=== PATIENT | male | born 1970 | race Two or more races ===

== ENCOUNTER 2016-10-24 08:07 | Outpatient (CLI) | payer MEDICARE, MEDICAID | END 2016-10-24 08:08 | disposition home or self-care (01) | DX: K22.8 Other specified diseases of esophagus (principal) ==

== ENCOUNTER 2016-12-14 11:16 | Emergency (ER) | payer MEDICARE, MEDICAID ==
[2016-12-14] MEDS ORDERED: LIDOCAINE 1%-EPI 1:100000 20 ML MDV SUBQ STA (12:32)
[2016-12-14] MEDS ORDERED: LIDOCAINE MPF 1%-EPI 1:200000 30 ML VIAL ONE (12:32)
== END 2016-12-14 13:18 | disposition home or self-care (01) ==
DX: L02.11 Cutaneous abscess of neck (principal); I10 Essential (primary) hypertension; E78.00 Pure hypercholesterolemia, unspecified; E11.9 Type 2 diabetes mellitus without complications; Z79.4 Long term (current) use of insulin; F17.200 Nicotine dependence, unspecified, uncomplicated

== ENCOUNTER 2017-12-15 17:19 | Emergency (ER) | payer MEDICARE, MEDICAID ==
--- NOTE | 2017-12-15 17:40 | ED Physician Documentation ---
PD HPI UPPER EXT INJURY - Stated complaint Stated Complaint: ARM LAC - Chief complaint Chief Complaint: Laceration - History obtained from History obtained from: Patient - History of Present Illness Location: Other (47-year-old gentleman who is up-to-date on tetanus cut his own right arm today because of anger at himself. There is no suicidal intent.) Review of Systems Constitutional: reports: Reviewed and negative Throat: reports: Reviewed and negative Cardiac: reports: Reviewed and negative Respiratory: reports: Reviewed and negative PD PAST MEDICAL HISTORY - Past Medical History Cardiovascular: Hypertension, High cholesterol Respiratory: None, Other Endocrine/Autoimmune: Type 2 diabetes Psych: Anxiety, Bipolar disorder, Other Musculoskeletal: None - Past Surgical History Past Surgical History: Yes - Present Medications Home Medications: Ambulatory Orders Medication Instructions Recorded Confirmed Fenofibrate [Tricor] 100 mg PO QD 03/19/13 06/24/16 Lisinopril [Zestril] 10 mg PO DAILY 03/19/13 06/24/16 Insulin Glargine,Hum.rec.anlog 60 units SUBQ QPM 02/27/14 06/24/16 [Lantus] Insulin Aspart (Vial) [NovoLOG] 7 - 17 unit SQ TIDWM 03/19/14 06/24/16 Atorvastatin [Lipitor] 1 tab PO DAILY 07/27/15 06/24/16 OLANZapine [Zyprexa] 10 mg PO DAILY 06/24/16 06/24/16 Sertraline HCl [Zoloft] 20 mg PO DAILY 06/24/16 06/24/16 Trazodone HCl 2 tab PO QPM #20 tablet 12/15/17 - Allergies Allergies/Adverse Reactions: Allergies Allergy/AdvReac Type Severity Reaction Status Date / Time Cephalosporins Allergy Severe Hives Verified 12/15/17 17:39 Penicillins Allergy Intermediate Rash Verified 12/15/17 17:39 eggplant Allergy Severe Edema Uncoded 12/15/17 17:39 - Social History Does the pt smoke?: Yes Smoking Status: Current every day smoker Does the pt drink ETOH?: Yes Does the pt have substance abuse?: No - Immunizations Immunizations are current?: Yes - POLST Patient has POLST: No PD ED PE NORMAL - Vitals Vital signs reviewed: Yes - General General: Alert and oriented X 3, Other (Loud and intoxicated) - HEENT HEENT: PERRL, EOMI - Abdomen Abdomen: Soft, Non tender - Back Back: No CVA TTP, No spinal TTP - Derm Derm: Other (There is a long but very shallow laceration over the dorsal part of the right forearm, it is only very mildly deep at the top and bottom portions of it, the portions needing suturing measure 5 cm.) - Extremities Extremities: No edema, No calf tenderness / cord - Neuro Neuro: Alert and oriented X 3, Normal speech Results - Vitals Vitals: Vital Signs - 24 hr 12/15/17 17:31 Temperature 37.2 C Heart Rate 110 H Respiratory 18 Rate Blood Pressure 142/108 H O2 Saturation 96 Oxygen O2 Source Room air Procedures - Laceration (location) R arm Length in cm: 5 Wound type: Linear Neurovascular status: Sensory intact, Motor intact, Vascular intact Anesthesia: Lidocaine 1% with epi Wound Preparation: Irrigated copiously NS Skin layer closure: Nylon, Running, Size #-0 - enter number (3-0) Other: Tetanus UTD Complexity: Simple PD MEDICAL DECISION MAKING - ED course ED course: Seen by social professionals and confirmed no suicidal or homicidal intent. Departure - Departure Disposition: 01 Home, Self Care Clinical Impression: Laceration Condition: Good Record reviewed to determine appropriate education?: Yes Instructions: ED Laceration All Prescriptions: Trazodone HCl 2 tab PO QPM #20 tablet Comments: Do not drink alcohol. Return if worse. Call your doctor to arrange a follow-up appointment, make the next available appointment. In the interim, return anytime if worse or if new symptoms develop. Your blood pressure was elevated today on check into the emergency department. This does not mean that you have hypertension, it is a common phenomenon to come to the emergency department and have elevated blood pressure. I recommend that you see your primary care physician within the week to have it rechecked when you are feeling better.
[2017-12-15] MEDS ORDERED: BACITRACIN OINT TOP ONE (18:01)
[2017-12-15 18:45] VITALS: BP 120/98
== END 2017-12-15 18:45 | disposition home or self-care (01) ==
LOC: ED 17:19
DX: S51.811A Laceration without foreign body of right forearm, initial encounter (principal); X78.9XXA Intentional self-harm by unspecified sharp object, initial encounter; I10 Essential (primary) hypertension; E78.00 Pure hypercholesterolemia, unspecified; E11.9 Type 2 diabetes mellitus without complications; F17.200 Nicotine dependence, unspecified, uncomplicated; Z79.4 Long term (current) use of insulin
CPT/HCPCS: 12002; 99283; A9270; 80053; 80307; 80320; 80329; 83690; 85025

== ENCOUNTER 2017-12-25 09:21 | Emergency (ER) | payer MEDICARE, MEDICAID ==
[2017-12-25] MEDS ORDERED: MULTIVITAMIN 10 ML in SODIUM CHLORIDE 0.9% 1,000 ML IV STA (09:44)
[2017-12-25] MEDS ORDERED: THIAMINE INJ 100 MG, FOLIC ACID INJ 1 MG in SODIUM CHLORIDE 0.9% 100ML 100 ML IV STA (09:44)
[2017-12-25] MEDS ORDERED: MAGNESIUM SULFATE 2 GRAM 2 GM/50 ML BAG IV STA (09:44)
[2017-12-25] MEDS ORDERED: LORazepam 2 MG/ML VIAL IVP STA ×2 (09:45→11:00)
[2017-12-25 10:25] LABS: BASOPHILS # (AUTO) 0.1 10^3/uL (0.0-0.1); BASOPHILS % (AUTO) 0.7 %; EOSINOPHILS % (AUTO) 0.4 %; HGB - HEMOGLOBIN 14.6 g/dL (14.0-18.0); LYMPHOCYTES # (AUTO) 1.7 10^3/uL (1.5-3.5); LYMPHOCYTES % (AUTO) 21.7 %; MEAN CORPUSCULAR HEMOGLOBIN 31.5 pg (27.0-31.0); MEAN CORPUSCULAR HGB CONC 34.2 g/dL (32.0-36.0); MEAN CORPUSCULAR VOLUME 92.2 fL (80.0-94.0); MEAN PLATELET VOLUME 7.9 fL (7.4-11.4); MONOCYTES # (AUTO) 0.3 10^3/uL (0.0-1.0); MONOCYTES % (AUTO) 4.1 %; NEUTROPHILS # (AUTO) 5.6 10^3/uL (1.5-6.6); NEUTROPHILS % (AUTO) 73.1 %; PLT - PLATELET COUNT 102 10^3/uL (130-450); RED BLOOD COUNT 4.63 10^6/uL (4.70-6.10); RED CELL DISTRIBUTION WIDTH 13.4 % (12.0-15.0); WHITE BLOOD COUNT 7.7 x10^3/uL (4.8-10.8)
[2017-12-25 10:29] LABS: ALBUMIN 4.6 g/dL (3.2-5.5); ALBUMIN/GLOBULIN RATIO 1.4 (1.0-2.2); ALKALINE PHOSPHATASE 73 IU/L (42-121); ALT ALANINE AMINOTRANSFERASE 51 IU/L (10-60); AST ASPARTATE AMINOTRANSFERASE 54 IU/L (10-42); BILIRUBIN,TOTAL 1.3 mg/dL (0.2-1.0); BUN - BLOOD UREA NITROGEN 17 mg/dL (6-20); CARBON DIOXIDE - CO2 21 mmol/L (21-32); CHLORIDE 91 mmol/L (101-111); CREATININE 0.7 mg/dL (0.6-1.2); GFR - MDRD 122 (>89); GLUCOSE 115 mg/dL (70-100); LIPASE 23 U/L (22-51); SODIUM 131 mmol/L (135-145)
[2017-12-25 10:42] LABS: MUDS CUTOFF CONCENTRATIONS CUTOFF CONC BELOW:
[2017-12-25 10:53] LABS: GLUCOSE, URINE (UA) 500 mg/dL (NEGATIVE); KETONES,URINE (UA) >=80 mg/dL (NEGATIVE); LEUKOCYTE ESTERASE, URINE NEGATIVE (NEGATIVE); NITRITE,URINE NEGATIVE (NEGATIVE); OCCULT BLOOD,URINE TRACE-INTA (NEGATIVE); PROTEIN,URINE TRACE mg/dL (NEGATIVE); UROBILINOGEN,URINE 0.2 (NORMAL) E.U./dL (NORMAL)
[2017-12-25] MEDS ORDERED: ONDANSETRON 4 MG/2 ML VIAL IVP STA (11:00)
--- NOTE | 2017-12-25 11:00 | ED Physician Documentation ---
History of Present Illness - Stated complaint Stated Complaint: WITHDRAWLS - Chief complaint Chief Complaint: General - Additonal information Additional information: hx from pt 47 male drinks 4 tall beers daily drank his usual amt yesterday today NVD and can't tolerate PO and has developed the shakes no hallucinations or seizures no bad food travel sick contacts wants detox no falls or injury Review of Systems Constitutional: denies: Fever, Chills Cardiac: denies: Chest pain / pressure, Palpitations Respiratory: denies: Dyspnea, Cough GI: reports: Nausea, Vomiting, Diarrhea. denies: Abdominal Pain Endocrine: denies: Easy bruising / bleeding Immunocompromised: denies: Immunocompromised PD PAST MEDICAL HISTORY - Past Medical History Cardiovascular: Hypertension, High cholesterol Respiratory: None, Other Neuro: Headache/migraine, Head injury, Peripheral neuropathy Endocrine/Autoimmune: Type 2 diabetes GI: Hemorrhoids : None HEENT: Chronic hearing loss Psych: Anxiety, Bipolar disorder, Other Musculoskeletal: None Derm: None - Past Surgical History Past Surgical History: Yes - Present Medications Home Medications: Ambulatory Orders Medication Instructions Recorded Confirmed Fenofibrate [Tricor] 100 mg PO QD 03/19/13 06/24/16 Lisinopril [Zestril] 10 mg PO DAILY 03/19/13 06/24/16 Insulin Glargine,Hum.rec.anlog 60 units SUBQ QPM 02/27/14 06/24/16 [Lantus] Insulin Aspart (Vial) [NovoLOG] 7 - 17 unit SQ TIDWM 03/19/14 06/24/16 Atorvastatin [Lipitor] 1 tab PO DAILY 07/27/15 06/24/16 OLANZapine [Zyprexa] 10 mg PO DAILY 06/24/16 06/24/16 Sertraline HCl [Zoloft] 20 mg PO DAILY 06/24/16 06/24/16 Trazodone HCl 2 tab PO QPM #20 tablet 12/15/17 chlordiazePOXIDE [Librium] 25 mg PO DAILY PRN #7 capsule 12/25/17 - Allergies Allergies/Adverse Reactions: Allergies Allergy/AdvReac Type Severity Reaction Status Date / Time Cephalosporins Allergy Severe Hives Verified 12/25/17 09:36 Penicillins Allergy Intermediate Rash Verified 12/25/17 09:36 eggplant Allergy Severe Edema Uncoded 12/25/17 09:36 - Social History Does the pt smoke?: Yes Smoking Status: Current every day smoker Does the pt drink ETOH?: Yes Does the pt have substance abuse?: No - Immunizations Immunizations are current?: Yes - POLST Patient has POLST: No PD ED PE NORMAL - Vitals Vital signs reviewed: Yes - General General: Alert and oriented X 3 - HEENT HEENT: Atraumatic - Neck Neck: Supple, no meningeal sign - Cardiac Cardiac: RRR - Respiratory Respiratory: No respiratory distress, Clear bilaterally - Abdomen Abdomen: Non tender - Derm Derm: Normal color - Neuro Neuro: Other (tremulous) Results - Vitals Vitals: Vital Signs - 24 hr 12/25/17 12/25/17 09:33 11:36 Temperature 36.2 C L Heart Rate 100 109 H Respiratory 20 18 Rate Blood Pressure 150/99 H 130/91 H O2 Saturation 100 99 Oxygen O2 Source Room air - EKG (time done) 0942 Rate: Rate (enter#) (94) Rhythm: NSR Ischemia: ST elevation c/w repol - Labs Labs: Laboratory Tests 12/25/17 12/25/17 12/25/17 10:12 10:12 10:15 WBC 7.7 RBC 4.63 L Hgb 14.6 Hct 42.7 MCV 92.2 MCH 31.5 H MCHC 34.2 RDW 13.4 Plt Count 102 L MPV 7.9 Neut # 5.6 Lymph # 1.7 [place] # 0.3 Eos # 0.0 Baso # 0.1 Absolute Nucleated RBC 0.00 Nucleated RBC % 0.0 Sodium 131 L Potassium 4.3 Chloride 91 L Carbon Dioxide 21 Anion Gap 19.0 H BUN 17 Creatinine 0.7 Estimated GFR (MDRD) 122 Glucose 115 H Calcium 9.0 Total Bilirubin 1.3 H AST 54 H ALT 51 Alkaline Phosphatase 73 Total Protein 8.0 Albumin 4.6 Globulin 3.4 Albumin/Globulin Ratio 1.4 Lipase 23 Urine Color YELLOW Urine Clarity CLEAR Urine pH 5.0 Ur Specific [place] >=1.030 H Urine Protein TRACE Urine Glucose (UA) 500 H Urine Ketones >=80 H Urine Occult Blood TRACE-INTA Urine Nitrite NEGATIVE Urine Bilirubin NEGATIVE Urine Urobilinogen 0.2 (NORMAL) Ur Leukocyte Esterase NEGATIVE Ur Microscopic Review NOT INDICATED Urine Culture Comments NOT INDICATED Urine Opiates Screen NEGATIVE Ur Oxycodone Screen NEGATIVE Urine Methadone Screen NEGATIVE Ur Propoxyphene Screen NEGATIVE Ur Barbiturates Screen NEGATIVE Ur Tricyclics Screen NEGATIVE Ur Phencyclidine Scrn NEGATIVE Ur Amphetamine Screen NEGATIVE U Methamphetamines Scrn NEGATIVE U Benzodiazepines Scrn POSITIVE H Urine Cocaine Screen NEGATIVE U Cannabinoids Screen NEGATIVE Ethyl Alcohol < 5.0 PD MEDICAL DECISION MAKING - ED course ED course: pt given ativan and a bananna bag and felt better declines inpt detox now has resources AA etc going home with family who can support him will dc he states he wants to sty sober so will rx librium very clearly explained not to drink while taking librium seen by SW and resources offered Departure - Departure Disposition: Home, Self Care Clinical Impression: Alcohol withdrawal Qualifiers: Complication of substance-induced condition: uncomplicated Qualified Code(s): F10.230 - Alcohol dependence with withdrawal, uncomplicated Condition: Good Instructions: ED Withdrawal Alcohol Follow-Up: Amanda Bergeron DO [Primary Care Provider] - (this week for a recheck ) Prescriptions: chlordiazePOXIDE [Librium] 25 mg PO DAILY PRN #7 capsule PRN Reason: withdrawal symptoms Comments: Please follow up with the outpatient resources social work provided you with
[2017-12-25 11:19] LABS: BILIRUBIN,URINE NEGATIVE (NEGATIVE); CLARITY,URINE CLEAR (CLEAR); ICTOTEST,URINE NEGATIVE
[2017-12-25 11:22] LABS: AMPHETAMINE SCREEN,URINE NEGATIVE (NEGATIVE); BENZODIAZEPINES SCREEN, URINE POSITIVE (NEGATIVE); COCAINE SCREEN URINE NEGATIVE (NEGATIVE); METHADONE SCREEN, URINE NEGATIVE (NEGATIVE); METHAMPHETAMINES SCREEN, URINE NEGATIVE (NEGATIVE); OPIATE SCREEN, URINE NEGATIVE (NEGATIVE); OXYCODONE SCREEN, URINE NEGATIVE (NEGATIVE); PROPOXYPHENE SCREEN, URINE NEGATIVE (NEGATIVE); TRICYCLIC ANTIDEPRESSANT,URINE NEGATIVE (NEGATIVE)
[2017-12-25 13:45] VITALS: BP 128/91
== END 2017-12-25 14:10 | disposition home or self-care (01) ==
LOC: ED 09:21
DX: F10.239 Alcohol dependence with withdrawal, unspecified (principal); I10 Essential (primary) hypertension; E78.00 Pure hypercholesterolemia, unspecified; E10.9 Type 1 diabetes mellitus without complications; F17.200 Nicotine dependence, unspecified, uncomplicated; Z79.4 Long term (current) use of insulin
CPT/HCPCS: 36415; 80053; 80306; 81003; 83690; 85025; 93005; 96365; 96366; 96368; 96375; 96376; 99283; 99284; G0480; J2060; J3411; 80320; 81001; 87086

== ENCOUNTER 2018-01-24 13:56 | Emergency (ER) | payer MEDICARE, MEDICAID ==
[2018-01-24] MEDS ORDERED: SODIUM CHLORIDE 0.9% 1,000 ML IV ONE (14:27)
--- NOTE | 2018-01-24 14:32 | ED Physician Documentation ---
PD HPI URI - Stated complaint Stated Complaint: Cough, sore though - Chief complaint Chief Complaint: Resp - History obtained from History obtained from: Patient, Friend (his neighbor) - History of Present Illness Timing - onset: Other (47-year-old gentleman with diabetes on insulin and alcoholism, smokes tobacco and also has bipolar disorder. He has been sick for about a week and a half with reductive cough with yellow sputum, body aches, severe fatigue and weight loss. He also has a sore throat. He denies abdominal pain or nausea. No sick contacts or recent travel. He says he has not drank today.) Review of Systems Constitutional: reports: Fever, Chills, Myalgias, Fatigue Ears: denies: Ear pain Nose: denies: Rhinorrhea / runny nose Throat: reports: Sore throat Respiratory: reports: Dyspnea, Cough GI: denies: Abdominal Pain, Nausea, Diarrhea PD PAST MEDICAL HISTORY - Past Medical History Past Medical History: Yes Cardiovascular: Hypertension, High cholesterol Respiratory: None, Other Endocrine/Autoimmune: Type 2 diabetes GI: Hemorrhoids : None HEENT: Chronic hearing loss Psych: Anxiety, Bipolar disorder, Other Musculoskeletal: None Derm: None - Past Surgical History Past Surgical History: Yes - Present Medications Home Medications: Ambulatory Orders Medication Instructions Recorded Confirmed Fenofibrate [Tricor] 100 mg PO QD 03/19/13 06/24/16 Lisinopril [Zestril] 10 mg PO DAILY 03/19/13 06/24/16 Insulin Glargine,Hum.rec.anlog 60 units SUBQ QPM 02/27/14 06/24/16 [Lantus] Insulin Aspart (Vial) [NovoLOG] 7 - 17 unit SQ TIDWM 03/19/14 06/24/16 Atorvastatin [Lipitor] 1 tab PO DAILY 07/27/15 06/24/16 OLANZapine [Zyprexa] 10 mg PO DAILY 06/24/16 06/24/16 Sertraline HCl [Zoloft] 20 mg PO DAILY 06/24/16 06/24/16 Trazodone HCl 2 tab PO QPM #20 tablet 12/15/17 chlordiazePOXIDE [Librium] 25 mg PO DAILY PRN #7 capsule 12/25/17 Clotrimazole Ben 10 mg MM 5XD #60 lozenge 01/24/18 Levofloxacin [Levaquin] 750 mg PO DAILY #9 tablet 01/24/18 - Allergies Allergies/Adverse Reactions: Allergies Allergy/AdvReac Type Severity Reaction Status Date / Time Cephalosporins Allergy Severe Hives Verified 01/24/18 14:05 Penicillins Allergy Intermediate Rash Verified 01/24/18 14:05 eggplant Allergy Severe Edema Uncoded 01/24/18 14:05 - Social History Does the pt smoke?: Yes Smoking Status: Current every day smoker Does the pt drink ETOH?: Yes Does the pt have substance abuse?: No - Family History Family history: reports: Non contributory - Immunizations Immunizations are current?: Yes - POLST Patient has POLST: No PD ED PE NORMAL - Vitals Vital signs reviewed: Yes - General General: Alert and oriented X 3, No acute distress - HEENT HEENT: Other (Dysmorphic facial features, hearing aids in place, he has a severe case of oropharyngeal thrush.) - Neck Neck: Supple, no meningeal sign, No bony TTP - Cardiac Cardiac: RRR, No murmur - Respiratory Respiratory: No respiratory distress, Clear bilaterally - Abdomen Abdomen: Normal bowel sounds, Soft, Non tender - Derm Derm: No rash - Neuro Neuro: Alert and oriented X 3, Normal speech Results - Vitals Vitals: Vital Signs - 24 hr 01/24/18 14:02 Temperature 36.3 C L Heart Rate 126 H Respiratory 18 Rate Blood Pressure 132/90 H O2 Saturation 98 Oxygen O2 Source Room air - Labs Labs: Laboratory Tests 01/24/18 01/24/18 01/24/18 15:00 15:00 15:00 WBC 13.0 H RBC 5.11 Hgb 15.9 Hct 46.5 MCV 91.0 MCH 31.1 H MCHC 34.1 RDW 13.1 Plt Count 254 MPV 7.7 Neut # 7.9 H Lymph # 3.4 Love # 1.6 H Eos # 0.0 Baso # 0.1 Absolute Nucleated RBC 0.01 Nucleated RBC % 0.1 Sodium 131 L Potassium 3.2 L Chloride 86 L Carbon Dioxide 27 Anion Gap 18.0 H BUN 8 Creatinine 0.6 Estimated GFR (MDRD) 146 Glucose 198 H Lactic Acid 1.5 Calcium 8.4 L Magnesium 2.4 Total Bilirubin 1.2 H AST 34 ALT 36 Alkaline Phosphatase 90 Total Protein 8.2 Albumin 3.5 Globulin 4.7 H Albumin/Globulin Ratio 0.7 L Lipase 26 Ethyl Alcohol 293.5 - Rads (name of study) 2v chest Radiology: EMP read contemporaneously (Mild but developing multifocal pneumonia) PD MEDICAL DECISION MAKING - ED course ED course: 47-year-old gentleman with history of alcoholism presents with cough and sputum production. He has oral thrush but he has no historical risk factors for HIV, he has never used IV drugs or been sexually promiscuous. He does have pneumonia on x-ray, his tachycardia resolved with IV fluids. He said he felt well enough to go home in fact was basically on his way out the door to go smoke and really wanted to get out of here so he was given oral antibiotics. Note made that he says he has not drank today, so he must of been really drunk last night. With his permission I called his friend to come pick him up. Departure - Departure Disposition: 01 Home, Self Care Clinical Impression: Alcoholism, Oral thrush Pneumonia Qualifiers: Pneumonia type: due to unspecified organism Laterality: bilateral Lung location : unspecified part of lung Qualified Code(s): J18.9 - Pneumonia, unspecified organism Condition: Good Record reviewed to determine appropriate education?: Yes Instructions: Pneumonia Dc, ED Alcohol Intoxication Prescriptions: Clotrimazole Ben 10 mg MM 5XD #60 lozenge Levofloxacin [Levaquin] 750 mg PO DAILY #9 tablet Comments: Call your doctor to arrange a follow-up appointment, make the next available appointment. In the interim, return anytime if worse or if new symptoms develop. Your blood pressure was elevated today on check into the emergency department. This does not mean that you have hypertension, it is a common phenomenon to come to the emergency department and have elevated blood pressure. I recommend that you see your primary care physician within the week to have it rechecked when you are feeling better.
--- NOTE | 2018-01-24 14:43 | XRAY Preliminary Report ---
Exam: XR CHEST 2 VIEW X-RAY IMPRESSION: Findings suggestive of infectious/inflammatory bronchiolitis and/or developing multifocal pneumonia. [facility] SITE ID: [id number]
--- NOTE | 2018-01-24 14:56 | XRAY Report ---
EXAM: CHEST RADIOGRAPHY EXAM DATE: 01/24/2018 02:25 PM. CLINICAL HISTORY: Productive cough, fever, and weight loss. COMPARISON: 10/18/2013. TECHNIQUE: 2 views. FINDINGS: Lungs/Pleura: Lungs are mildly hyperinflated as before which may be physiologic or due to airways dis ease. There are bilateral patchy reticular nodular opacities, predominating the right lung with relat mihir sparing of the left upper lung. No pleural effusion. No pneumothorax. Mediastinum: Heart and mediastinal contours are unremarkable. Other: None. IMPRESSION: Findings suggestive of infectious/inflammatory bronchiolitis and/or developing multifocal pneumonia. [facility] Referring Provider Line: [phone] SITE ID: [id number]
[2018-01-24 15:07] LABS: BASOPHILS # (AUTO) 0.1 10^3/uL (0.0-0.1); BASOPHILS % (AUTO) 0.6 %; EOSINOPHILS % (AUTO) 0.3 %; HGB - HEMOGLOBIN 15.9 g/dL (14.0-18.0); LYMPHOCYTES # (AUTO) 3.4 10^3/uL (1.5-3.5); LYMPHOCYTES % (AUTO) 25.9 %; MEAN CORPUSCULAR HEMOGLOBIN 31.1 pg (27.0-31.0); MEAN CORPUSCULAR HGB CONC 34.1 g/dL (32.0-36.0); MEAN PLATELET VOLUME 7.7 fL (7.4-11.4); MONOCYTES # (AUTO) 1.6 10^3/uL (0.0-1.0); MONOCYTES % (AUTO) 12.5 %; NEUTROPHILS # (AUTO) 7.9 10^3/uL (1.5-6.6); NEUTROPHILS % (AUTO) 60.7 %; PLT - PLATELET COUNT 254 10^3/uL (130-450); RED BLOOD COUNT 5.11 10^6/uL (4.70-6.10); RED CELL DISTRIBUTION WIDTH 13.1 % (12.0-15.0)
[2018-01-24 15:23] LABS: ALBUMIN 3.5 g/dL (3.2-5.5); ALBUMIN/GLOBULIN RATIO 0.7 (1.0-2.2); BILIRUBIN,TOTAL 1.2 mg/dL (0.2-1.0); CALCIUM 8.4 mg/dL (8.5-10.3); CREATININE 0.6 mg/dL (0.6-1.2); MAGNESIUM 2.4 mg/dL (1.7-2.8); TOTAL PROTEIN 8.2 g/dL (6.7-8.2)
[2018-01-24] MEDS ORDERED: levoFLOXacin 750 MG/150 ML 750 MG/150 ML BAG IV ONE (15:28)
[2018-01-24] MEDS ORDERED: POTASSIUM BICARB 25 MEQ TABLET PO STA (15:28)
[2018-01-24] MEDS ORDERED: THIAMINE 100 MG TABLET PO STA (15:28)
[2018-01-24] MEDS ORDERED: levoFLOXacin 250 MG TABLET PO STA (15:42)
[2018-01-24 15:58] VITALS: BP 139/89
== END 2018-01-24 16:00 | disposition home or self-care (01) ==
LOC: ED 13:56
DX: J18.9 Pneumonia, unspecified organism (principal); B37.0 Candidal stomatitis; F10.20 Alcohol dependence, uncomplicated; E11.9 Type 2 diabetes mellitus without complications; Z79.4 Long term (current) use of insulin; I10 Essential (primary) hypertension; F17.200 Nicotine dependence, unspecified, uncomplicated
CPT/HCPCS: 36415; 71046; 80053; 83605; 83690; 83735; 85025; 87040; 96360; 99283; 99284; A9270; G0480; 80320

== ENCOUNTER 2018-01-26 10:42 | Emergency (ER) | payer MEDICARE, MEDICAID ==
[2018-01-26] MEDS ORDERED: SODIUM CHLORIDE 0.9% 1,000 ML IV ONE ×2 (11:41→13:02)
[2018-01-26 11:55] LABS: BASOPHILS # (AUTO) 0.1 10^3/uL (0.0-0.1); BASOPHILS % (AUTO) 0.4 %; EOSINOPHILS % (AUTO) 0.2 %; HGB - HEMOGLOBIN 16.1 g/dL (14.0-18.0); LYMPHOCYTES # (AUTO) 3.1 10^3/uL (1.5-3.5); LYMPHOCYTES % (AUTO) 24.5 %; MEAN CORPUSCULAR HEMOGLOBIN 30.8 pg (27.0-31.0); MEAN CORPUSCULAR HGB CONC 33.7 g/dL (32.0-36.0); MEAN CORPUSCULAR VOLUME 91.3 fL (80.0-94.0); MEAN PLATELET VOLUME 7.4 fL (7.4-11.4); MONOCYTES # (AUTO) 1.1 10^3/uL (0.0-1.0); MONOCYTES % (AUTO) 8.6 %; NEUTROPHILS # (AUTO) 8.3 10^3/uL (1.5-6.6); NEUTROPHILS % (AUTO) 66.3 %; PLT - PLATELET COUNT 254 10^3/uL (130-450); RED BLOOD COUNT 5.24 10^6/uL (4.70-6.10); RED CELL DISTRIBUTION WIDTH 13.2 % (12.0-15.0); WHITE BLOOD COUNT 12.5 x10^3/uL (4.8-10.8)
[2018-01-26 12:20] LABS: ALBUMIN 3.5 g/dL (3.2-5.5); ALBUMIN/GLOBULIN RATIO 0.7 (1.0-2.2); BILIRUBIN,TOTAL 1.2 mg/dL (0.2-1.0); CALCIUM 8.9 mg/dL (8.5-10.3); CREATININE 0.6 mg/dL (0.6-1.2); TOTAL PROTEIN 8.3 g/dL (6.7-8.2)
--- NOTE | 2018-01-26 12:20 | XRAY Report ---
EXAM: CHEST RADIOGRAPHY EXAM DATE: 01/26/2018 12:11 PM. CLINICAL HISTORY: Cough, fever. COMPARISON: Chest radiograph dated 01/24/2018. TECHNIQUE: 2 views. FINDINGS: Lungs/Pleura: Subtle increased interstitial markings in the left lung base and right midlung field. N o focal opacities evident. No pleural effusion. No pneumothorax. Normal volumes. Mediastinum: Heart and mediastinal contours are unremarkable. Other: None. IMPRESSION: 1. No focal consolidation. 2. Subtle increased interstitial markings in the left lung base and right midlung field are nonspecif ic but can be seen in the setting of reactive airways disease, bronchitis and viral infection. These are similar in appearance to the prior examination. [facility] Referring Provider Line: [phone] SITE ID: [id number]
--- NOTE | 2018-01-26 13:00 | ED Physician Documentation ---
PD HPI URI - Stated complaint Stated Complaint: COUGH,SOA,WEAKNESS - Chief complaint Chief Complaint: Resp - History obtained from History obtained from: Patient - History of Present Illness Timing - onset: How many days ago (3) Timing duration: Days (3) Timing details: Gradual onset Pain level max: 0 Pain level now: 0 Associated symptoms: Nasal congestion, Rhinorrhea, Productive cough. No: Hemoptysis Contributing factors: Sick contact Improves by: Rest Worsened by: Activity Recently seen: Emergency Dept (2 days ago for same.) - Additional information Additional information: States has been sick for several days. Dx with pneumonia 2 days ago and started on levaquin. States not feeling any better. States that he had decreased appetite at home. Drinks 4-6 beers per day. Is an insulin dependent diabetic. Subjective fevers. Has chronic diarrhea, unchanged from baseline. +rhinorrhea. + productive cough, white/yellow. Has intermittent headaches, these resolve with tylenol. Review of Systems Ten Systems: 10 systems reviewed and negative Nose: reports: Rhinorrhea / runny nose Respiratory: reports: Cough GI: reports: Nausea, Diarrhea Skin: denies: Rash Musculoskeletal: denies: Neck pain, Back pain Neurologic: denies: Headache PD PAST MEDICAL HISTORY - Past Medical History Cardiovascular: Hypertension, High cholesterol Respiratory: None, Other Endocrine/Autoimmune: Type 2 diabetes GI: Hemorrhoids : None HEENT: Chronic hearing loss Psych: Anxiety, Bipolar disorder, Other Musculoskeletal: None Derm: None - Past Surgical History Past Surgical History: Yes - Present Medications Home Medications: Ambulatory Orders Medication Instructions Recorded Confirmed Fenofibrate [Tricor] 100 mg PO QD 03/19/13 06/24/16 Lisinopril [Zestril] 10 mg PO DAILY 03/19/13 06/24/16 Insulin Glargine,Hum.rec.anlog 60 units SUBQ QPM 02/27/14 06/24/16 [Lantus] Insulin Aspart (Vial) [NovoLOG] 7 - 17 unit SQ TIDWM 03/19/14 06/24/16 Atorvastatin [Lipitor] 1 tab PO DAILY 07/27/15 06/24/16 OLANZapine [Zyprexa] 10 mg PO DAILY 06/24/16 06/24/16 Sertraline HCl [Zoloft] 20 mg PO DAILY 06/24/16 06/24/16 Trazodone HCl 2 tab PO QPM #20 tablet 12/15/17 chlordiazePOXIDE [Librium] 25 mg PO DAILY PRN #7 capsule 12/25/17 Clotrimazole Ben 10 mg MM 5XD #60 lozenge 01/24/18 Levofloxacin [Levaquin] 750 mg PO DAILY #9 tablet 01/24/18 Albuterol Sulf [Ventolin Hfa 1 - 2 puffs INH Q4HR PRN #1 inhaler 01/26/18 Inhaler] predniSONE [Prednisone] 40 mg PO DAILY #10 tablet 01/26/18 - Allergies Allergies/Adverse Reactions: Allergies Allergy/AdvReac Type Severity Reaction Status Date / Time Cephalosporins Allergy Severe Hives Verified 01/26/18 10:56 Penicillins Allergy Intermediate Rash Verified 01/26/18 10:56 eggplant Allergy Severe Edema Uncoded 01/24/18 14:05 - Social History Does the pt smoke?: Yes Smoking Status: Current every day smoker Does the pt drink ETOH?: Yes Does the pt have substance abuse?: No - Immunizations Immunizations are current?: Yes - POLST Patient has POLST: No PD ED PE NORMAL - Vitals Vital signs reviewed: Yes - General General: Alert and oriented X 3, No acute distress, Well developed/nourished - HEENT HEENT: Ears normal, Moist mucous membranes, Other (tonsillar exudates.) - Neck Neck: Supple, no meningeal sign - Cardiac Cardiac: RRR, Strong equal pulses - Respiratory Respiratory: No respiratory distress, Other (very diminished BS bilaterally.) - Abdomen Abdomen: Soft, Non tender, Non distended - Derm Derm: Warm and dry - Neuro Neuro: Alert and oriented X 3 - Psych Psych: Normal mood, Normal affect Results - Vitals Vitals: Vital Signs - 24 hr 01/26/18 01/26/18 01/26/18 10:53 13:09 13:36 Temperature 36.1 C L 36.4 C L Heart Rate 112 H 113 H 108 H Respiratory 18 22 20 Rate Blood Pressure 148/98 H 117/89 H O2 Saturation 99 99 01/26/18 01/26/18 13:59 14:44 Temperature 37.0 C Heart Rate 118 H 126 H Respiratory 20 20 Rate Blood Pressure 133/86 H O2 Saturation 95 Oxygen O2 Source Room air - Labs Labs: Laboratory Tests 01/26/18 01/26/18 01/26/18 11:41 11:41 11:41 WBC 12.5 H RBC 5.24 Hgb 16.1 Hct 47.9 MCV 91.3 MCH 30.8 MCHC 33.7 RDW 13.2 Plt Count 254 MPV 7.4 Neut # 8.3 H Lymph # 3.1 Arthur # 1.1 H Eos # 0.0 Baso # 0.1 Absolute Nucleated RBC 0.00 Nucleated RBC % 0.0 VBG pH VBG pCO2 VBG pO2 VBG HCO3 VBG Total CO2 VBG O2 Saturation VBG Base Excess Sodium 133 L Potassium 3.6 Chloride 85 L Carbon Dioxide 27 Anion Gap 21.0 H BUN 7 Creatinine 0.6 Estimated GFR (MDRD) 146 Glucose 193 H Lactic Acid Calcium 8.9 Total Bilirubin 1.2 H AST 37 ALT 30 Alkaline Phosphatase 91 Total Protein 8.3 H Albumin 3.5 Globulin 4.8 H Albumin/Globulin Ratio 0.7 L Lipase 24 Serum Ketones SMALL H 01/26/18 01/26/18 13:12 13:12 WBC RBC Hgb Hct MCV MCH MCHC RDW Plt Count MPV Neut # Lymph # Arthur # Eos # Baso # Absolute Nucleated RBC Nucleated RBC % VBG pH 7.454 H VBG pCO2 42.3 VBG pO2 17.9 L VBG HCO3 29.0 H VBG Total CO2 30.3 H VBG O2 Saturation 29.7 L VBG Base Excess 4.5 H Sodium Potassium Chloride Carbon Dioxide Anion Gap BUN Creatinine Estimated GFR (MDRD) Glucose Lactic Acid 1.7 Calcium Total Bilirubin AST ALT Alkaline Phosphatase Total Protein Albumin Globulin Albumin/Globulin Ratio Lipase Serum Ketones - Rads (name of study) cxr Radiology: Prelim report reviewed, EMP read contemporaneously, See rad report ( No focal consolidation. Subtle increased interstitial markings in the left lung base and right midlung field are nonspecific but can be seen in the setting of reactive airways disease, bronchitis and viral infection. These are similar in appearance to the prior examination. ) PD MEDICAL DECISION MAKING - ED course Complexity details: reviewed old records, reviewed results, re-evaluated patient , considered differential, d/w patient, d/w family ED course: Patient is a 47-year-old male who presents to the emergency department with what appears to be a viral upper respiratory infection complicated by wheezing and likely COPD given his smoking history. He is also an alcoholic. Feels better after IV fluids and suspected that he has volume contraction based on his laboratory values. He is tolerating p.o. without difficulty here. No vomiting. Feels better after nebulizer treatments. Will place on inhalers and steroids for home and have him continue prior care. Patient is well-appearing, nontoxic. Patient counseled regarding signs and symptoms for which I believe and urgent re-evaluation would be necessary. Patient with good understanding of and agreement to plan and is comfortable going home at this time This document was made in part using voice recognition software. While efforts are made to proofread this document, sound alike and grammatical errors may occur. Departure - Departure Disposition: Home, Self Care Clinical Impression: Dehydration, Wheezing Pneumonia Qualifiers: Pneumonia type: due to unspecified organism Laterality: unspecified laterality Lung location: unspecified part of lung Qualified Code(s): J18.9 - Pneumonia, unspecified organism Condition: Good Instructions: ED Dehydration Follow-Up: Amanda Bergeron DO [Primary Care Provider] - Within 1 week Prescriptions: Albuterol Sulf [Ventolin Hfa Inhaler] 1 - 2 puffs INH Q4HR PRN #1 inhaler PRN Reason: Shortness Of Air/Wheezing predniSONE [Prednisone] 40 mg PO DAILY #10 tablet Comments: Return if you worsen. Drink plenty of water at home. Continue your medications as previously prescribed. Discharge Date/Time: 01/26/18 15:00
[2018-01-26] MEDS ORDERED: IPRATROPIUM/ALBUTEROL 3 ML NEB INH STA (13:20)
[2018-01-26 13:23] LABS: VBG BASE EXCESS 4.5 mmol/L (-2 - +2); VBG PCO2 42.3 mmHg (41-51); VBG PH 7.454 (7.31-7.41); VBG PO2 17.9 mmHg (25-47); VBG TOTAL CO2 30.3 mmol/L (24-29)
[2018-01-26] MEDS ORDERED: ALBUTEROL NEB 2.5 MG/3 ML INH STA (13:45)
[2018-01-26] MEDS ORDERED: predniSONE 20 MG TABLET PO STA (13:46)
[2018-01-26 14:45] VITALS: BP 133/86
== END 2018-01-26 15:00 | disposition home or self-care (01) ==
LOC: ED 10:42
DX: E86.0 Dehydration (principal); R06.2 Wheezing; J18.9 Pneumonia, unspecified organism; I10 Essential (primary) hypertension; E78.00 Pure hypercholesterolemia, unspecified; E11.9 Type 2 diabetes mellitus without complications; F17.200 Nicotine dependence, unspecified, uncomplicated; Z79.4 Long term (current) use of insulin
CPT/HCPCS: 36415; 71046; 80053; 82009; 82803; 83605; 83690; 85025; 94640; 94664; 96360; 99283; 99284; J7512

== ENCOUNTER 2018-01-29 14:51 | Emergency (ER) | payer MEDICARE, MEDICAID ==
[2018-01-29 15:03] VITALS: BP 124/95
--- NOTE | 2018-01-29 15:46 | ED Physician Documentation ---
PD HPI URI - Stated complaint Stated Complaint: DIZZY,LATHARGIC,NO APPETITE - Chief complaint Chief Complaint: General - History obtained from History obtained from: Patient - History of Present Illness Timing - onset: How many weeks ago (1-2 weeks of cough, malaise, and nausea, feeling ill. He has been on antibiotics and steroids with only moderate improvement. Had gotten Rx for Albuterol MDI but he says it "clogged" and was not working. He is feeling "defeated" and "done with battling this" and thinks he needs to be in the hospital.) Timing duration: Weeks (2) Timing details: Gradual onset, Still present (improved some but not very well), Waxing and waning Associated symptoms: Fever, Chills, Nasal congestion, Productive cough, Dyspnea. No: Hemoptysis, Chest pain, NVD, Bilateral edema Contributing factors: COPD / asthma. No: Sick contact, Travel, Immunocompromised Similar symptoms before: Has not had sx before Recently seen: Emergency Dept (seen for bronchitis/pneumonia and Rx with Prednisione, Levaquin, cough med, and Albuterol.) Review of Systems Constitutional: denies: Fever, Chills Nose: reports: Rhinorrhea / runny nose, Congestion (purulent nasal discharge at times.) Throat: denies: Sore throat Cardiac: reports: Chest pain / pressure (anterior with cough). denies: Palpitations Respiratory: reports: Dyspnea, Cough, Wheezing. denies: Hemoptysis GI: reports: Nausea. denies: Abdominal Pain, Vomiting, Diarrhea : denies: Dysuria, Frequency Skin: denies: Rash, Lesions Neurologic: reports: Generalized weakness, Confused. denies: Focal weakness, Numbness, Altered mental status, Headache, Head injury Psychiatric: reports: Anxiety Endocrine: denies: Easy bruising / bleeding Immunocompromised: denies: Immunocompromised PD PAST MEDICAL HISTORY - Past Medical History Cardiovascular: Hypertension, High cholesterol Respiratory: None, Other Endocrine/Autoimmune: Type 2 diabetes GI: Hemorrhoids : None HEENT: Chronic hearing loss Psych: Anxiety, Bipolar disorder, Other Musculoskeletal: None Derm: None - Past Surgical History Past Surgical History: Yes - Present Medications Home Medications: Ambulatory Orders Medication Instructions Recorded Confirmed Fenofibrate [Tricor] 100 mg PO QD 03/19/13 06/24/16 Lisinopril [Zestril] 10 mg PO DAILY 03/19/13 06/24/16 Insulin Glargine,Hum.rec.anlog 60 units SUBQ QPM 02/27/14 06/24/16 [Lantus] Insulin Aspart (Vial) [NovoLOG] 7 - 17 unit SQ TIDWM 03/19/14 06/24/16 Atorvastatin [Lipitor] 1 tab PO DAILY 07/27/15 06/24/16 OLANZapine [Zyprexa] 10 mg PO DAILY 06/24/16 06/24/16 Sertraline HCl [Zoloft] 20 mg PO DAILY 06/24/16 06/24/16 Trazodone HCl 2 tab PO QPM #20 tablet 12/15/17 chlordiazePOXIDE [Librium] 25 mg PO DAILY PRN #7 capsule 12/25/17 Clotrimazole Ben 10 mg MM 5XD #60 lozenge 01/24/18 Levofloxacin [Levaquin] 750 mg PO DAILY #9 tablet 01/24/18 Albuterol Sulf [Ventolin Hfa 1 - 2 puffs INH Q4HR PRN #1 inhaler 01/26/18 Inhaler] predniSONE [Prednisone] 40 mg PO DAILY #10 tablet 01/26/18 Albuterol Sulf [Ventolin Hfa 1 - 2 puffs INH Q4HR PRN #1 inhaler 01/29/18 Inhaler] Benzonatate [Tessalon] 100 mg PO TID PRN #20 capsule 01/29/18 Dexamethasone [Decadron] 4 mg PO DAILY #5 tablet 01/29/18 Doxycycline Monohydrate 100 mg PO BID #14 tablet 01/29/18 - Allergies Allergies/Adverse Reactions: Allergies Allergy/AdvReac Type Severity Reaction Status Date / Time Cephalosporins Allergy Severe Hives Verified 01/29/18 15:03 Penicillins Allergy Intermediate Rash Verified 01/29/18 15:03 eggplant Allergy Severe Edema Uncoded 01/29/18 15:03 - Social History Does the pt smoke?: Yes Smoking Status: Current every day smoker Does the pt drink ETOH?: Yes Does the pt have substance abuse?: No - Family History Family history: reports: Non contributory - Immunizations Immunizations are current?: Yes - POLST Patient has POLST: No PD ED PE NORMAL - Vitals Vital signs reviewed: Yes - General General: Alert and oriented X 3, No acute distress, Well developed/nourished ( but unkempt) - HEENT HEENT: Pharynx benign. No: Moist mucous membranes - Neck Neck: Supple, no meningeal sign, No adenopathy, No JVD, No bruit - Cardiac Cardiac: RRR (but tachycardic), No murmur - Respiratory Respiratory: No: Clear bilaterally (wheezing noted diffusely, and some central congestion with cough. ) - Abdomen Abdomen: Normal bowel sounds, Soft, Non tender, Non distended - Derm Derm: Normal color, Warm and dry - Extremities Extremities: No deformity, No tenderness to palpate, Normal ROM s pain, No edema , No calf tenderness / cord, Other - Neuro Neuro: Alert and oriented X 3, No motor deficit, Normal speech Results - Vitals Vitals: Vital Signs - 24 hr 01/29/18 01/29/18 14:57 16:25 Temperature 36.6 C Heart Rate 119 H 100 Respiratory 16 18 Rate Blood Pressure 124/95 H O2 Saturation 96 Oxygen O2 Source Room air - Labs Labs: Laboratory Tests 01/29/18 01/29/18 01/29/18 16:25 16:25 17:20 WBC 14.6 H RBC 5.20 Hgb 15.8 Hct 46.9 MCV 90.1 MCH 30.4 MCHC 33.7 RDW 13.0 Plt Count 193 MPV 7.3 L Neut # 8.6 H Lymph # 5.2 H Mclennan # 0.7 Eos # 0.0 Baso # 0.1 Absolute Nucleated RBC 0.01 Nucleated RBC % 0.0 Manual Slide Review Indicated Platelet Estimate NORMAL (130-450,000) Platelet Morphology NORMAL APPEARANCE RBC Morph Micro Appear NORMAL APPEARANCE VBG pH 7.446 H VBG pCO2 40.9 L VBG pO2 26.5 VBG HCO3 27.5 VBG Total CO2 28.8 VBG O2 Saturation 53.3 L VBG Base Excess 3.2 H Sodium 131 L Potassium 3.8 Chloride 87 L Carbon Dioxide 27 Anion Gap 17.0 H BUN 12 Creatinine 0.7 Estimated GFR (MDRD) 122 Glucose 201 H Calcium 8.9 Magnesium 2.3 Total Bilirubin 1.1 H AST 30 ALT 28 Alkaline Phosphatase 78 Total Protein 8.4 H Albumin 3.8 Globulin 4.6 H Albumin/Globulin Ratio 0.8 L Lipase 35 Ethyl Alcohol 194.2 Serum Ketones MODERATE H - Rads (name of study) chest Radiology: Prelim report reviewed (bronchial thickening. no infiltrates. Similar to prior film. ), EMP read contemporaneously PD MEDICAL DECISION MAKING - ED course Complexity details: re-evaluated patient (breathing easier with nebs. Feeling better with fluids and meds. Vitals/HR improved. Sats still good. ), considered differential (seems dehydrated likely and has cough and wheezing. Brittney katie for pneumonia. Give IV fluids and meds. ), d/w patient Departure - Departure Disposition: 01 Home, Self Care Clinical Impression: Dehydration, Wheezing, Bronchitis Condition: Stable Record reviewed to determine appropriate education?: Yes Instructions: ED Upper Resp Infec Abx Tx Follow-Up: Amanda Bergeron DO [Primary Care Provider] - Prescriptions: Albuterol Sulf [Ventolin Hfa Inhaler] 1 - 2 puffs INH Q4HR PRN #1 inhaler PRN Reason: Shortness Of Air/Wheezing Benzonatate [Tessalon] 100 mg PO TID PRN #20 capsule PRN Reason: Cough Dexamethasone [Decadron] 4 mg PO DAILY #5 tablet Doxycycline Monohydrate 100 mg PO BID #14 tablet Comments: Your blood tests and chest x-ray. Good without signs of significant pneumonia nor sepsis. I think we can refill your inhaler which will help quite a bit doing 2-3 puffs 4 times a day and extra times as needed. Will change to a different antibiotic and steroid with doxycycline and Decadron and see if they work better and also use Tessalon if needed for cough. Recheck if still not improving over the next few days. Discharge Date/Time: 01/29/18 19:42
[2018-01-29] MEDS ORDERED: SODIUM CHLORIDE 0.9% 1,000 ML IV ONE (15:57)
[2018-01-29] MEDS ORDERED: FLUCONAZOLE 100 MG TABLET PO STA (15:58)
[2018-01-29] MEDS ORDERED: DEXAMETHASONE 10 MG/ML VIAL IVP STA (15:58)
[2018-01-29] MEDS ORDERED: BENZONATATE 100 MG CAPSULE PO STA (15:58)
[2018-01-29] MEDS ORDERED: diphenhydrAMINE ELIXIR 25 MG/10 ML UDC PO STA (15:58)
[2018-01-29] MEDS ORDERED: LIDOCAINE VISCOUS 2% 15 ML UDC MM STA (15:59)
[2018-01-29] MEDS: IPRATROPIUM/ALBUTEROL 3 ML NEB INH PRN ×2 (16:25→19:28)
[2018-01-29 16:38] LABS: BASOPHILS # (AUTO) 0.1 10^3/uL (0.0-0.1); BASOPHILS % (AUTO) 0.7 %; EOSINOPHILS % (AUTO) 0.2 %; HGB - HEMOGLOBIN 15.8 g/dL (14.0-18.0); LYMPHOCYTES # (AUTO) 5.2 10^3/uL (1.5-3.5); LYMPHOCYTES % (AUTO) 35.7 %; MEAN CORPUSCULAR HEMOGLOBIN 30.4 pg (27.0-31.0); MEAN CORPUSCULAR HGB CONC 33.7 g/dL (32.0-36.0); MEAN CORPUSCULAR VOLUME 90.1 fL (80.0-94.0); MEAN PLATELET VOLUME 7.3 fL (7.4-11.4); MONOCYTES # (AUTO) 0.7 10^3/uL (0.0-1.0); MONOCYTES % (AUTO) 4.5 %; NEUTROPHILS # (AUTO) 8.6 10^3/uL (1.5-6.6); NEUTROPHILS % (AUTO) 58.9 %; PLT - PLATELET COUNT 193 10^3/uL (130-450); WHITE BLOOD COUNT 14.6 x10^3/uL (4.8-10.8)
[2018-01-29 16:46] LABS: KETONES, SERUM (ACETEST) MODERATE (NEGATIVE)
[2018-01-29 16:52] LABS: ALBUMIN 3.8 g/dL (3.2-5.5); ALBUMIN/GLOBULIN RATIO 0.8 (1.0-2.2); ALKALINE PHOSPHATASE 78 IU/L (42-121); ALT ALANINE AMINOTRANSFERASE 28 IU/L (10-60); AST ASPARTATE AMINOTRANSFERASE 30 IU/L (10-42); BILIRUBIN,TOTAL 1.1 mg/dL (0.2-1.0); BUN - BLOOD UREA NITROGEN 12 mg/dL (6-20); CALCIUM 8.9 mg/dL (8.5-10.3); CARBON DIOXIDE - CO2 27 mmol/L (21-32); CHLORIDE 87 mmol/L (101-111); CREATININE 0.7 mg/dL (0.6-1.2); GFR - MDRD 122 (>89); GLUCOSE 201 mg/dL (70-100); LIPASE 35 U/L (22-51); MAGNESIUM 2.3 mg/dL (1.7-2.8); SODIUM 131 mmol/L (135-145); TOTAL PROTEIN 8.4 g/dL (6.7-8.2)
[2018-01-29 17:06] LABS: PLATELET ESTIMATE, MANUAL NORMAL (130-450,000) (NORMAL); PLATELET MORPHOLOGY NORMAL APPEARANCE (NORMAL); RBC MORPHOLOGY (MULTIPLE) NORMAL APPEARANCE (NORMAL)
[2018-01-29] MEDS ORDERED: DOXYCYCLINE INJ 100 MG in SODIUM CHLORIDE 0.9% MINIBAG 100 ML IV STA (17:13)
[2018-01-29 17:36] LABS: VBG BASE EXCESS 3.2 mmol/L (-2 - +2); VBG PCO2 40.9 mmHg (41-51); VBG PH 7.446 (7.31-7.41); VBG PO2 26.5 mmHg (25-47); VBG TOTAL CO2 28.8 mmol/L (24-29)
--- NOTE | 2018-01-29 18:14 | XRAY Preliminary Report ---
Exam: XR CHEST 2 VIEW X-RAY IMPRESSION: No focal consolidation with similar to slightly improved bilateral lung findings, which r emain nonspecific and could be seen with reactive airways disease, bronchitis or atypical infection. RADI SITE ID: [id number]
--- NOTE | 2018-01-29 18:20 | XRAY Report ---
EXAM: CHEST RADIOGRAPHY EXAM DATE: 01/29/2018 05:49 PM. CLINICAL HISTORY: Cough and wheezing. COMPARISON: Chest radiograph 01/26/2018, 01/24/2018 and 10/18/2013. TECHNIQUE: 2 views. FINDINGS: Lungs/Pleura: No dense focal consolidation. There are similar to mildly improved increased interstiti al markings at the left lung base and right midlung and lung base to the recent prior exams. No pleur al effusion. No pneumothorax. There is bronchial wall thickening and the lungs are borderline hyperin flated. Mediastinum: Heart and mediastinal contours are unremarkable. Other: None. IMPRESSION: No focal consolidation with similar to slightly improved bilateral lung findings, which r emain nonspecific and could be seen with reactive airway disease, bronchitis or atypical infection. MYA[facility] Referring Provider Line: [phone] SITE ID: [id number]
== END 2018-01-29 19:42 | disposition home or self-care (01) ==
LOC: ED 14:51
DX: E86.0 Dehydration (principal); R06.2 Wheezing; J40 Bronchitis, not specified as acute or chronic; I10 Essential (primary) hypertension; E11.9 Type 2 diabetes mellitus without complications; F17.200 Nicotine dependence, unspecified, uncomplicated; Z79.4 Long term (current) use of insulin; Z79.51 Long term (current) use of inhaled steroids
CPT/HCPCS: 36415; 71046; 80053; 82009; 82803; 83690; 83735; 85025; 94640; 96361; 96374; 96375; 99283; 99284; A9270; G0480; 80320

== ENCOUNTER 2020-02-08 15:26 | Outpatient (CLI) | payer MEDICARE, MEDICAID | END 2020-02-08 15:27 | disposition critical access hospital (66) | LOC: EMS 15:26 | PROVIDERS: ATTEND Surgery | DX: K92.0 Hematemesis (principal); Z72.89 Other problems related to lifestyle | CPT/HCPCS: A0425; A0429 ==

== ENCOUNTER 2020-02-08 15:46 | Emergency (ER) | payer MEDICARE, MEDICAID ==
[2020-02-08] MEDS ORDERED: FOLIC ACID INJ 1 MG, THIAMINE INJ 100 MG, MAGNESIUM SULFATE 2 GM, MULTIVITAMIN 10 ML in... IV STA ×5 (15:51)
[2020-02-08] MEDS ORDERED: ONDANSETRON 4 MG/2 ML VIAL IVP STA (15:52)
[2020-02-08] MEDS ORDERED: PANTOPRAZOLE 40 MG VIAL IVP STA (15:52)
[2020-02-08 16:05] LABS: BASOPHILS % (AUTO) 0.6 %; EOSINOPHILS % (AUTO) 0.4 %; LYMPHOCYTES % (AUTO) 36.2 %; MEAN CORPUSCULAR HEMOGLOBIN 31.4 pg (27.0-31.0); MEAN CORPUSCULAR VOLUME 92.5 fL (80.0-94.0); MEAN PLATELET VOLUME 9.8 fL (7.4-11.4); NEUTROPHILS % (AUTO) 57.6 %; RED BLOOD COUNT 5.09 10^6/uL (4.70-6.10); RED CELL DISTRIBUTION WIDTH 11.9 % (12.0-15.0); WHITE BLOOD COUNT 9.7 x10^3/uL (4.8-10.8)
[2020-02-08 16:11] LABS: ABNORMAL LYMPHS % (MANUAL) 0 %; BAND NEUTROPHILS % (MANUAL) 0 %
[2020-02-08 16:14] LABS: PARTIAL THROMBOPLASTIN TIME 28.7 secs (24.9-33.3)
[2020-02-08 16:18] LABS: ACETAMINOPHEN < 10 ug/mL (10-30); ALBUMIN 4.4 g/dL (3.2-5.5); ALBUMIN/GLOBULIN RATIO 1.3 (1.0-2.2); ALKALINE PHOSPHATASE 161 IU/L (42-121); ALT ALANINE AMINOTRANSFERASE 147 IU/L (10-60); AST ASPARTATE AMINOTRANSFERASE 169 IU/L (10-42); BILIRUBIN,TOTAL 1.1 mg/dL (0.2-1.0); BUN - BLOOD UREA NITROGEN 15 mg/dL (6-20); CALCIUM 8.6 mg/dL (8.5-10.3); CARBON DIOXIDE - CO2 25 mmol/L (21-32); CHLORIDE 88 mmol/L (101-111); CREATININE 0.6 mg/dL (0.6-1.2); GLUCOSE 161 mg/dL (70-100); LIPASE 34 U/L (22-51); SALICYLATE < 6.0 mg/dL; SODIUM 133 mmol/L (135-145); TOTAL PROTEIN 7.9 g/dL (6.7-8.2)
[2020-02-08 16:20] LABS: BASOPHILS # (MANUAL) 0.3 10^3/uL (0-0.1); BASOPHILS % (MANUAL) 3 %; LYMPHOCYTES # (MANUAL) 3.3 10^3/uL (1.5-3.5); LYMPHOCYTES % (MANUAL) 34 %; MONOCYTES # (MANUAL) 0.2 10^3/uL (0.0-1.0); PLATELET MORPHOLOGY NORMAL APPEARANCE (NORMAL); RBC MORPHOLOGY (MULTIPLE) NORMAL APPEARANCE (NORMAL)
[2020-02-08 16:21] LABS: DIFFERENTIAL COMMENT MANUAL DIFFERENTIAL; PLATELET ESTIMATE, MANUAL DECREASED (<130,000) (NORMAL); PLT - PLATELET COUNT 84 10^3/uL (130-450)
--- NOTE | 2020-02-08 16:27 | ED Physician Documentation ---
History of Present Illness - Stated complaint Stated Complaint: HBD - Chief complaint Chief Complaint: Abd Pain - History obtained from History obtained from: Patient, EMS - History of Present Illness Timing: Today Pain level max: 0 Pain level now: 0 - Additonal information Additional information: 49-year-old alcoholic male presents to the emergency department with vomiting since yesterday. He states he is able to keep down alcohol, but is vomiting food. Nothing makes it better or worse. He states that he noted a very small amount of blood in the vomit today. Called 911 for evaluation. No fevers. No abdominal pain. No blood in the stool. No history of varices.No recent antibiotics. Review of Systems Ten Systems: 10 systems reviewed and negative Constitutional: denies: Fever, Chills Nose: denies: Rhinorrhea / runny nose, Reviewed and negative Respiratory: denies: Cough GI: reports: Vomiting. denies: Diarrhea Skin: denies: Rash Musculoskeletal: denies: Neck pain, Back pain Neurologic: denies: Headache PD PAST MEDICAL HISTORY - Past Medical History Past Medical History: Yes Cardiovascular: Hypertension, High cholesterol Respiratory: None, Other Endocrine/Autoimmune: Type 2 diabetes GI: Hemorrhoids : None HEENT: Chronic hearing loss Psych: Anxiety, Bipolar disorder, Other Musculoskeletal: None Derm: None - Past Surgical History Past Surgical History: Yes - Present Medications Home Medications: Ambulatory Orders Medication Instructions Recorded Confirmed Fenofibrate [Tricor] 100 mg PO QD 03/19/13 06/24/16 lisinopriL [Zestril] 10 mg PO DAILY 03/19/13 06/24/16 Insulin Glargine,Hum.rec.anlog 60 units SUBQ QPM 02/27/14 06/24/16 [Lantus] Insulin Aspart (Vial) [NovoLOG] 7 - 17 unit SQ TIDWM 03/19/14 06/24/16 Atorvastatin [Lipitor] 1 tab PO DAILY 07/27/15 06/24/16 OLANZapine [Zyprexa] 10 mg PO DAILY 06/24/16 06/24/16 Sertraline HCl [Zoloft] 20 mg PO DAILY 06/24/16 06/24/16 Trazodone HCl 2 tab PO QPM #20 tablet 12/15/17 chlordiazePOXIDE [Librium] 25 mg PO DAILY PRN #7 capsule 12/25/17 Clotrimazole Ben 10 mg MM 5XD #60 lozenge 01/24/18 Levofloxacin [Levaquin] 750 mg PO DAILY #9 tablet 01/24/18 Albuterol Sulf [Ventolin Hfa 1 - 2 puffs INH Q4HR PRN #1 inhaler 01/26/18 Inhaler] predniSONE [Prednisone] 40 mg PO DAILY #10 tablet 01/26/18 Albuterol Sulf [Ventolin Hfa 1 - 2 puffs INH Q4HR PRN #1 inhaler 01/29/18 Inhaler] Benzonatate [Tessalon] 100 mg PO TID PRN #20 capsule 01/29/18 Doxycycline Monohydrate 100 mg PO BID #14 tablet 01/29/18 dexAMETHasone [Decadron] 4 mg PO DAILY #5 tablet 01/29/18 Esomeprazole Magnesium [Nexium] 40 mg PO DAILY #30 capsule. 02/08/20 - Allergies Allergies/Adverse Reactions: Allergies Allergy/AdvReac Type Severity Reaction Status Date / Time Cephalosporins Allergy Severe Hives Verified 02/08/20 15:53 Penicillins Allergy Intermediate Rash Verified 02/08/20 15:53 eggplant Allergy Severe Edema Uncoded 02/08/20 15:53 - Social History Does the pt smoke?: Yes Smoking Status: Current every day smoker Does the pt drink ETOH?: Yes Does the pt have substance abuse?: No - Immunizations Immunizations are current?: Yes - POLST Patient has POLST: No PD ED PE NORMAL - Vitals Vital signs reviewed: Yes - General General: Alert and oriented X 3, No acute distress - HEENT HEENT: Moist mucous membranes - Neck Neck: Supple, no meningeal sign - Cardiac Cardiac: RRR - Respiratory Respiratory: No respiratory distress, Clear bilaterally - Abdomen Abdomen: Soft, Non tender, Non distended - Derm Derm: Warm and dry - Extremities Extremities: No edema - Neuro Neuro: Alert and oriented X 3 Results - Vitals Vitals: Vital Signs - 24 hr 02/08/20 02/08/20 02/08/20 15:53 16:06 18:00 Temperature 36.9 C 36.9 C 36.7 C Heart Rate 120 H 110 H 106 H Respiratory 22 16 20 Rate Blood Pressure 157/99 H 134/100 H 132/95 H O2 Saturation 98 98 100 Oxygen O2 Source Room air - Labs Labs: Laboratory Tests 02/08/20 02/08/20 02/08/20 15:50 15:50 15:50 WBC 9.7 RBC 5.09 Hgb 16.0 Hct 47.1 MCV 92.5 MCH 31.4 H MCHC 34.0 RDW 11.9 L Plt Count 84 L MPV 9.8 Neut # (Auto) Not Reportable Lymph # (Auto) Not Reportable [place] # (Auto) Not Reportable Eos # (Auto) Not Reportable Baso # (Auto) Not Reportable Absolute Nucleated RBC Not Reportable Total Counted 100 Band Neuts % (Manual) 0 Abnorm Lymph % (Manual) 0 Nucleated RBC % Not Reportable Neutrophils # (Manual) 5.9 Lymphocytes # (Manual) 3.3 Monocytes # (Manual) 0.2 Eosinophils # (Manual) 0.0 Basophils # (Manual) 0.3 H Differential Comment MANUAL DIFFERENTIAL Manual Slide Review Indicated WBC Morphology NORMAL APPEARANCE Platelet Estimate DECREASED (<130,000) Platelet Morphology NORMAL APPEARANCE RBC Morph Micro Appear NORMAL APPEARANCE PT INR APTT Sodium 133 L Potassium 3.7 Chloride 88 L Carbon Dioxide 25 Anion Gap 20.0 H BUN 15 Creatinine 0.6 Estimated GFR (MDRD) 144 Glucose 161 H Calcium 8.6 Total Bilirubin 1.1 H AST 169 H ALT 147 H Alkaline Phosphatase 161 H Total Protein 7.9 Albumin 4.4 Globulin 3.5 Albumin/Globulin Ratio 1.3 Lipase 34 TSH 4.09 Urine Color Urine Clarity Urine pH Ur Specific [place] Urine Protein Urine Glucose (UA) Urine Ketones Urine Occult Blood Urine Nitrite Urine Bilirubin Urine Urobilinogen Ur Leukocyte Esterase Urine RBC Urine WBC Ur Squamous Epith Cells Urine Bacteria Ur Microscopic Review Urine Culture Comments Salicylates < 6.0 Urine Opiates Screen Ur Oxycodone Screen Urine Methadone Screen Ur Propoxyphene Screen Acetaminophen < 10 L Ur Barbiturates Screen Ur Tricyclics Screen Ur Phencyclidine Scrn Ur Amphetamine Screen U Methamphetamines Scrn U Benzodiazepines Scrn Urine Cocaine Screen U Cannabinoids Screen Ethyl Alcohol 336.6 Blood Type Blood Type Recheck Antibody Screen 02/08/20 02/08/20 02/08/20 15:50 15:50 16:00 WBC RBC Hgb Hct MCV MCH MCHC RDW Plt Count MPV Neut # (Auto) Lymph # (Auto) [place] # (Auto) Eos # (Auto) Baso # (Auto) Absolute Nucleated RBC Total Counted Band Neuts % (Manual) Abnorm Lymph % (Manual) Nucleated RBC % Neutrophils # (Manual) Lymphocytes # (Manual) Monocytes # (Manual) Eosinophils # (Manual) Basophils # (Manual) Differential Comment Manual Slide Review WBC Morphology Platelet Estimate Platelet Morphology RBC Morph Micro Appear PT 11.0 INR 1.0 APTT 28.7 Sodium Potassium Chloride Carbon Dioxide Anion Gap BUN Creatinine Estimated GFR (MDRD) Glucose Calcium Total Bilirubin AST ALT Alkaline Phosphatase Total Protein Albumin Globulin Albumin/Globulin Ratio Lipase TSH Urine Color Urine Clarity Urine pH Ur Specific [place] Urine Protein Urine Glucose (UA) Urine Ketones Urine Occult Blood Urine Nitrite Urine Bilirubin Urine Urobilinogen Ur Leukocyte Esterase Urine RBC Urine WBC Ur Squamous Epith Cells Urine Bacteria Ur Microscopic Review Urine Culture Comments Salicylates Urine Opiates Screen Ur Oxycodone Screen Urine Methadone Screen Ur Propoxyphene Screen Acetaminophen Ur Barbiturates Screen Ur Tricyclics Screen Ur Phencyclidine Scrn Ur Amphetamine Screen U Methamphetamines Scrn U Benzodiazepines Scrn Urine Cocaine Screen U Cannabinoids Screen Ethyl Alcohol Blood Type B POSITIVE Blood Type Recheck B POSITIVE Antibody Screen NEGATIVE 02/08/20 16:30 WBC RBC Hgb Hct MCV MCH MCHC RDW Plt Count MPV Neut # (Auto) Lymph # (Auto) [place] # (Auto) Eos # (Auto) Baso # (Auto) Absolute Nucleated RBC Total Counted Band Neuts % (Manual) Abnorm Lymph % (Manual) Nucleated RBC % Neutrophils # (Manual) Lymphocytes # (Manual) Monocytes # (Manual) Eosinophils # (Manual) Basophils # (Manual) Differential Comment Manual Slide Review WBC Morphology Platelet Estimate Platelet Morphology RBC Morph Micro Appear PT INR APTT Sodium Potassium Chloride Carbon Dioxide Anion Gap BUN Creatinine Estimated GFR (MDRD) Glucose Calcium Total Bilirubin AST ALT Alkaline Phosphatase Total Protein Albumin Globulin Albumin/Globulin Ratio Lipase TSH Urine Color YELLOW Urine Clarity CLEAR Urine pH 6.0 Ur Specific [place] <=1.005 Urine Protein NEGATIVE Urine Glucose (UA) 250 H Urine Ketones TRACE Urine Occult Blood SMALL H Urine Nitrite NEGATIVE Urine Bilirubin NEGATIVE Urine Urobilinogen 0.2 (NORMAL) Ur Leukocyte Esterase NEGATIVE Urine RBC 0-5 Urine WBC 0-3 Ur Squamous Epith Cells NONE SEEN Urine Bacteria None Seen Ur Microscopic Review INDICATED Urine Culture Comments NOT INDICATED Salicylates Urine Opiates Screen NEGATIVE Ur Oxycodone Screen NEGATIVE Urine Methadone Screen NEGATIVE Ur Propoxyphene Screen NEGATIVE Acetaminophen Ur Barbiturates Screen NEGATIVE Ur Tricyclics Screen NEGATIVE Ur Phencyclidine Scrn NEGATIVE Ur Amphetamine Screen NEGATIVE U Methamphetamines Scrn NEGATIVE U Benzodiazepines Scrn NEGATIVE Urine Cocaine Screen NEGATIVE U Cannabinoids Screen NEGATIVE Ethyl Alcohol Blood Type Blood Type Recheck Antibody Screen PD MEDICAL DECISION MAKING - ED course Complexity details: reviewed results, re-evaluated patient, considered differential, d/w patient ED course: Patient feels better after banana bag, Zofran. Tolerating p.o. without difficulty. No further vomiting. Ambulating without difficulty in the emergency department and speaking with clear speech. Patient request to go home at this time. Patient counseled regarding signs and symptoms for which I believe and urgent re-evaluation would be necessary. Patient with good understanding of and agreement to plan and is comfortable going home at this time This document was made in part using voice recognition software. While efforts are made to proofread this document, sound alike and grammatical errors may occur. Patient was also given IV Protonix. Departure - Departure Disposition: 01 Home, Self Care Clinical Impression: Alcoholism Alcoholic gastritis Qualifiers: Chronicity: acute Gastritis bleeding: without bleeding Qualified Code(s): K29.20 - Alcoholic gastritis without bleeding Alcoholic hepatitis Qualifiers: Ascites presence: without ascites Qualified Code(s): K70.10 - Alcoholic hepatitis without ascites Condition: Good Instructions: ED Gastritis, ED Alcohol Abuse Follow-Up: your,doctor in 3 days to recheck your liver tests [Other] Prescriptions: Esomeprazole Magnesium [Nexium] 40 mg PO DAILY #30 capsule. Comments: You need to follow-up with your doctor for further care. You need to have your liver test rechecked in 3 days. Your alcoholism is degrading your stomach lining and killing your liver. Return if you worsen. You need to stop drinking. Discharge Date/Time: 02/08/20 18:06
[2020-02-08 16:38] LABS: MUDS CUTOFF CONCENTRATIONS CUTOFF CONC BELOW:
[2020-02-08 16:40] LABS: BILIRUBIN,URINE NEGATIVE (NEGATIVE); GLUCOSE, URINE (UA) 250 mg/dL (NEGATIVE); KETONES,URINE (UA) TRACE mg/dL (NEGATIVE); LEUKOCYTE ESTERASE, URINE NEGATIVE (NEGATIVE); NITRITE,URINE NEGATIVE (NEGATIVE); OCCULT BLOOD,URINE SMALL (NEGATIVE); PROTEIN,URINE NEGATIVE (NEGATIVE); UROBILINOGEN,URINE 0.2 (NORMAL) E.U./dL (NORMAL)
[2020-02-08 16:41] LABS: CLARITY,URINE CLEAR (CLEAR)
[2020-02-08 16:54] LABS: AMPHETAMINE SCREEN,URINE NEGATIVE (NEGATIVE); BACTERIA,URINE None Seen /HPF (None Seen); BENZODIAZEPINES SCREEN, URINE NEGATIVE (NEGATIVE); COCAINE SCREEN URINE NEGATIVE (NEGATIVE); METHADONE SCREEN, URINE NEGATIVE (NEGATIVE); METHAMPHETAMINES SCREEN, URINE NEGATIVE (NEGATIVE); OPIATE SCREEN, URINE NEGATIVE (NEGATIVE); OXYCODONE SCREEN, URINE NEGATIVE (NEGATIVE); PROPOXYPHENE SCREEN, URINE NEGATIVE (NEGATIVE); RBC,URINE 0-5 /HPF (0-5); SQUAMOUS EPITHELIAL CELL,UR NONE SEEN (<= Few); TRICYCLIC ANTIDEPRESSANT,URINE NEGATIVE (NEGATIVE)
[2020-02-08 18:01] VITALS: BP 132/95
== END 2020-02-08 18:06 | disposition home or self-care (01) ==
LOC: EDUNIT# → ED 15:46
DX: K29.20 Alcoholic gastritis without bleeding (principal); K70.10 Alcoholic hepatitis without ascites; F10.20 Alcohol dependence, uncomplicated; I10 Essential (primary) hypertension; E11.9 Type 2 diabetes mellitus without complications; F17.200 Nicotine dependence, unspecified, uncomplicated; Z79.4 Long term (current) use of insulin
CPT/HCPCS: 36415; 80053; 81001; 83690; 84443; 85025; 85610; 85730; 86850; 86900; 86901; 96365; 96375; 99284; J3411; 80306; 80307; 80320; 80329; 81003; 87086

== ENCOUNTER 2020-03-21 20:09 | Outpatient (CLI) | payer MEDICARE, MEDICAID | END 2020-03-21 23:59 | disposition E | LOC: EMS 20:09 | PROVIDERS: ATTEND Surgery ==